=== PATIENT | male | born 1950 | race Caucasian/White ===

== ENCOUNTER → 2017-02-17 | Outpatient (CLI) | payer MEDICARE, OTHER ==
[~2017-02-17] MED LIST: ADALAT CC60 MG PO; CHILDREN'S ZYRT10 MG PO; PRINIVIL20 MG PO; RT SPIRIVA18 MCG IH; TOPROL XL100 MG PO
== END ==
LOC: COL.RAD 10:02
DX: R91.1 Solitary pulmonary nodule (principal)
CPT/HCPCS: Q9967

== ENCOUNTER → 2018-02-02 | Outpatient (CLI) | payer MEDICARE, OTHER | LOC: COL.RAD 07:18 | DX: Z13.6 Encounter for screening for cardiovascular disorders (principal); I71.4 Abdominal aortic aneurysm, without rupture; I72.3 Aneurysm of iliac artery ==

== ENCOUNTER 2018-12-22 14:02 | Inpatient (IN) | payer MEDICARE, OTHER ==
[~2018-12-22] VITALS: Ht 182.9 cm; Wt 80.7 kg
[~2018-12-22 14:02] MED LIST changes: +ASPIRIN E.C. 8181 MG PO; -CHILDREN'S ZYRT10 MG PO; +PRINZIDE 12.5 M1 TA1 PO; +SYNTHROID0.1 MG/TAB PO; +ZYRTEC 10MG10 MG PO
[2018-12-22 15:08] LABS: ALBUMIN 3.8 gm/dL (3.5-5.0); BASO % 0.2 % (0.0-2.0); BILIRUBIN,TOTAL 0.4 mg/dL (0.0-1.0); CALCIUM 9.3 mg/dL (8.4-10.2); CREATININE, serum 0.95 (0.66-1.25); EOS # 0.2 (0.0-0.7); EOS % 1.2 % (0-4.0); GRAN # 10.5 (1.4-6.5); GRAN % 74.8 % (42.2-75.2); HEMATOCRIT 43.8 % (42.0-52.0); HEMOGLOBIN 14.7 g/dl (13.5-18.0); LYMPH # 2.2 (1.2-3.4); LYMPH % 15.6 % (20.0-51.0); MAGNESIUM 2.1 mg/dL (1.6-2.3); MEAN CELL VOLUME 92 fl (80.0-100.0); MEAN CORPUSCULAR HEMOGLOBIN 31 pg (27.0-31.0); MEAN CORPUSCULAR HGB CONC 34 g/dl (33.0-37.0); MEAN PLATELET VOLUME 12.7 fl (7.4-10.4); MONO % 7.1 % (1.7-9.3); PLATELET COUNT 169 K/mm3 (130-400); POTASSIUM 3.6 mmol/L (3.4-5.0); RED BLOOD COUNT 4.74 M/mm3 (4.20-5.60); REDCELL DISTRIBUTION WIDTH-CV 12.9 % (11.5-14.5); TOTAL PROTEIN 7.9 gm/dL (6.4-8.2)
[2018-12-22 16:26] LABS: C-REACTIVE PROTEIN 4.7 mg/dL (0.0-0.9); CREATINE KINASE 58 U/L (55-170)
[2018-12-22 16:36] LABS: TROPONIN-I < 0.012 ng/mL (0.000-0.035)
--- NOTE | 2018-12-22 19:15 | NUR ---
Pt here from ER via stretcher. No distress noted. Family at bedside. Call light within reach. Will review orders and complete assessment.
[2018-12-22 19:26] VITALS: BP 133/76; PULSE 71; TEMP 98.7
--- NOTE | 2018-12-22 19:30 | NUR ---
Pt is alert and oriented. No c/o pain. Pt is c/o sinus drainage and cough x 10 days. He states he occasionally coughs up mucus. Lungs clear to auscultation. He is requesting a PRN cough medication. Pt states he has tingly and numbness in bilateral feet, R arm up to his elbow and L arm up to his mid humerus. Pt also reports that his hands and feet feel swollen. There is no edema present. 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 Some right arm drift noted, but is minimal. Pupils equal and accomodating.
--- NOTE | 2018-12-22 19:38 | NUR ---
Orders received from Ama DILLON for PRN cough medication per pt request.
--- NOTE | 2018-12-22 22:30 | NUR ---
Pt voided 400 cc of clear, yesika urine in urinal. No needs noted.
[2018-12-22 23:45] VITALS: BP 128/68; PULSE 77; TEMP 97.3
--- NOTE | 2018-12-23 03:40 | NUR ---
Pt sleeping, but easily arousable. Neuro check WNL. Pt reports that numbness and tingling is still present in Bilateral feet and hands, but it has resolved in arms.
[2018-12-23 03:58] VITALS: BP 117/77; PULSE 67; TEMP 98.4
--- NOTE | 2018-12-23 06:05 | NUR ---
Pt sleeping this AM. Easily arousable. Denies pain. Pt reports that numbness and tingling is at original levels of bilateral feet, r arm to elbow and l arm to mid humerus. Pt denies needs.
[2018-12-23 07:10] LABS: BASO % 0.1 % (0.0-2.0); EOS # 0.2 (0.0-0.7); EOS % 1.5 % (0-4.0); GRAN % 72.5 % (42.2-75.2); MEAN CELL VOLUME 93 fl (80.0-100.0); MEAN CORPUSCULAR HGB CONC 33 g/dl (33.0-37.0); MEAN PLATELET VOLUME 12.7 fl (7.4-10.4); MONO # 0.7 (0.1-0.6); MONO % 6.6 % (1.7-9.3); PLATELET COUNT 132 K/mm3 (130-400); RED BLOOD COUNT 3.97 M/mm3 (4.20-5.60); REDCELL DISTRIBUTION WIDTH-CV 13.1 % (11.5-14.5)
[2018-12-23 07:27] LABS: CALCIUM 8.4 mg/dL (8.4-10.2); CREATININE, serum 0.88 (0.66-1.25); POTASSIUM 3.7 mmol/L (3.4-5.0)
[2018-12-23 07:37] LABS: HEMATOCRIT 36.9 % (42.0-52.0); MEAN CORPUSCULAR HEMOGLOBIN 31 pg (27.0-31.0)
[2018-12-23 07:38] LABS: HEMOGLOBIN 12.2 g/dl (13.5-18.0)
[2018-12-23 08:26] VITALS: BP 129/76; PULSE 58; TEMP 98.3
--- NOTE | 2018-12-23 10:54 | NUR ---
Assessment completed, alert/oriented, vital signs stable/ HTN and I have given his scheduled meds to help lower B/P, he denies any pain or discomfort, he reports numbness to BUE and BLE extrm. is still present and unchanged, he stated he feels generally weak, we will consult Neurology 12/24 as we do not have coverage over the weekend, he denies any resp.difficulty and lungs are CTA, heart RRR/ditsal pulses are palpable, PT/OT ordered, his is present and I have discussed plan of care with them, I have updated of patients condition and discussed plan of care
[2018-12-23 11:21] VITALS: BP 137/70; PULSE 54; TEMP 98.2
--- NOTE | 2018-12-23 13:35 | NUR ---
BEDSIDE VITAL CAPACITY 2.8L 3.59L 3.75L. GOOD EFFORT SOME COUGHING AT END EXPIRATORY.
[2018-12-23 15:55] VITALS: BP 136/71; PULSE 58; TEMP 98.6
--- NOTE | 2018-12-23 16:35 | NUR ---
Plan is to return home with his Saskia . EMR contact is [facility] in [place]. PT reports DPOA is , Patient reports the use of [facility] for RX fdc, short term scripts are [facility]. Patient reports the use of CPAP as the only DME. PCP is Dr. Maldonado with upcoming appointment in January. Patient decline homehealth services or the need for SNF. Patient reports being agreeable to outpat services. will transport if patient can not. Patient may need RT oxi-, patient reports inconsistent use of CPAP. No additional needs identified. Will continue to follow.
[2018-12-23 19:56] VITALS: BP 130/79; PULSE 65; TEMP 97.9
[2018-12-23 23:27] VITALS: BP 109/60; PULSE 57; TEMP 98.1
--- NOTE | 2018-12-24 00:26 | NUR ---
VC 3.7L, 3.8L, 3.9L DONE WITH NOSE CLIPS AND GREAT EFFORT.
[2018-12-24 04:01] VITALS: BP 101/66; PULSE 65; TEMP 98.1
--- NOTE | 2018-12-24 04:24 | NUR ---
Patient resting in bed. Denies needs at this time. Telemetry called stating patient bradycardic low 50s. No sx. Will monitor. Currently pulse is 65 on library monitor.
--- NOTE | 2018-12-24 05:21 | NUR ---
Telemetry called stating heart rate 44. Patient asymptomatic. VS taken. Will monitor.
[2018-12-24 05:22] VITALS: BP 112/70; PULSE 65; TEMP 98.1
--- NOTE | 2018-12-24 06:12 | NUR ---
Pt reports no change this AM. Continues to have numbness to bilat hands and feet. Holds on to cup to drink with both hands, states he is afraid he will drop the cup. Not sure he has a good hold of it. Will continue to monitor.
--- NOTE | 2018-12-24 07:13 | NUR ---
Patient taken for lumbar puncture.
--- NOTE | 2018-12-24 07:45 | NUR ---
Patient to radiology for lumbar puncture at this time.
--- NOTE | 2018-12-24 07:45 | NUR ---
Pt had one episode of bradycardia with HR of 43. Ama notified of HR. Pt with no s/s. Was sleeping, awakens easily. VS monitored with HR 60's. Order to hold Metoprolol this AM. Report given to NAKUL Best.
[2018-12-24 08:05] LABS: HEMATOCRIT 37.8 % (42.0-52.0); HEMOGLOBIN 12.7 g/dl (13.5-18.0); MEAN CELL VOLUME 92 fl (80.0-100.0); MEAN CORPUSCULAR HEMOGLOBIN 31 pg (27.0-31.0); MEAN CORPUSCULAR HGB CONC 34 g/dl (33.0-37.0); MEAN PLATELET VOLUME 12.4 fl (7.4-10.4); PLATELET COUNT 176 K/mm3 (130-400); RED BLOOD COUNT 4.12 M/mm3 (4.20-5.60); REDCELL DISTRIBUTION WIDTH-CV 12.9 % (11.5-14.5)
[2018-12-24 08:19] LABS: CALCIUM 8.7 mg/dL (8.4-10.2); CREATININE, serum 0.78 (0.66-1.25); POTASSIUM 3.5 mmol/L (3.4-5.0)
[2018-12-24 08:32] VITALS: BP 123/77; PULSE 74; TEMP 97.3
[2018-12-24 08:49] LABS: TSH w REFLEX 1.67 uIU/mL (0.465-4.680)
[2018-12-24 08:58] LABS: GLUCOSE,CSF 52 mg/dL (40-70); TOTAL PROTEIN,CSF 59 mg/dL (15-45)
[2018-12-24 09:09] LABS: LYMPHOCYTE 12 % (20.0-51.0); NEUTROPHILS 85 % (42.0-75.2); PLATELET ESTIMATE NORMAL (NORMAL)
--- NOTE | 2018-12-24 09:10 | NUR ---
Patient returned from lumbar puncture procedure at 0850, was instructed to lay flat until 0900. Patient was administered medications. Did ask if he could eat. Asked PA and physician and was instructed to contact Dr. Lindsey. Call placed awaiting return call. Call light and personal items are within reach.
--- NOTE | 2018-12-24 09:24 | NUR ---
BESIDE VITAL CAPACITY DONE 4.53L 3.42L 4.18L GOOD EFFORT COUGHING END EXPIRATORY
[2018-12-24 11:01] LABS: CSF APPEARANCE CLEAR; CSF COLOR COLORLESS; CSF MONONUCLEAR 100 % (70-100); CSF POLYMORPHONUCLEAR 0 % (0-6); CSF RBC 1 /mm3 (0-0)
[2018-12-24 11:44] VITALS: BP 122/82; PULSE 74; TEMP 98.4
--- NOTE | 2018-12-24 11:49 | NUR ---
First visit from the grain weigher. No needs right now.
--- NOTE | 2018-12-24 13:03 | NUR ---
Received return call from Dr. Lindsey, received order that patient can resume regular diet.
--- NOTE | 2018-12-24 13:50 | NUR ---
YADI met with the patient to review discharge plan and to discuss physical therapies recommendation of post-acute rehab. The patient reports that he would be agreeable to post-acute rehab and would be interested in [facility]. The patient reports that he would like more answers on the tests that were done and medical plan of care, before he can really committ to rehab. YADI did consult IPR Director, Melia. YADI also provided the patient with Medicare.gov's list of SNF in the [facility]. YADI to continue to follow.
--- NOTE | 2018-12-24 14:19 | NUR ---
VITAL CAPACITY 4.83L 3.89L 4.96L
[2018-12-24 16:05] VITALS: BP 117/75; PULSE 82; TEMP 98.9
--- NOTE | 2018-12-24 19:05 | NUR ---
Patient is resting in bed. Dr. Lindsey brought orders for patient to receive IGG, was informed earlier that we do not have the medication here. He requested to speak with Dr. Finn, phone dialed for him and notified oncoming shift of new orders from Dr. Lindsey.
--- NOTE | 2018-12-24 19:42 | NUR ---
PT SITTING UPRIGHT IN BED. GOOD SPIRITS. ASSESSMENT COMPLETE. NO C/O DISCOMFORT. STILL CONTINUES TO HAVE NUMBNESS IN ALL EXTREMITIES.
[2018-12-24 19:44] VITALS: BP 130/78; PULSE 95; TEMP 97.3
--- NOTE | 2018-12-24 19:51 | NUR ---
PT HAS BANDAID INTACT TO MID-LOWER BACK FROM LUMBAR PUNCTURE TODAY. NO REDNESS, DRAINAGE NOTED.
--- NOTE | 2018-12-24 20:27 | NUR ---
VC: 3.9 4.3 4.5
[2018-12-24 21:12] LABS: COLLECTION METHOD CLEAN CATCH
[2018-12-24 21:27] LABS: AMORPHOUS CRYSTAL Present /uL; MUCOUS Present /lpf; PH 7 (5-8); SQUAMOUS EPITHELIAL None Seen /hpf; URINE APPEARANCE Clear; URINE BACTERIA Rare /hpf; URINE BILIRUBIN Negative (NEGATIVE); URINE BLOOD 1+ (NEGATIVE); URINE COLOR Yellow; URINE GLUCOSE Negative (NEGATIVE); URINE KETONE Negative (NEGATIVE); URINE LEUKOCYTE ESTERASE Negative (NEGATIVE); URINE NITRATE Negative (NEGATIVE); URINE PROTEIN(semi-quant) Negative (NEGATIVE)
[2018-12-25 00:39] VITALS: BP 131/80; PULSE 99; TEMP 98.7
[2018-12-25 04:34] VITALS: BP 141/85; PULSE 100; TEMP 98
--- NOTE | 2018-12-25 06:32 | NUR ---
Pt repositioned throughout the night. Incont of urine. Scrotum and groin area red. Applied barrier cream. Coccyx area with small open area.
--- NOTE | 2018-12-25 06:45 | NUR ---
awake resting in bed, bedside shift report received from NAKUL Rosa
--- NOTE | 2018-12-25 06:56 | NUR ---
Report given to NAKUL Taylor
--- NOTE | 2018-12-25 07:40 | NUR ---
VITAL CAPACITY X THREE. 1.9; 2.7; 3.65
[2018-12-25 07:46] LABS: BASO % 0.2 % (0.0-2.0); EOS # 0.1 (0.0-0.7); GRAN % 80.4 % (42.2-75.2); HEMATOCRIT 38.9 % (42.0-52.0); HEMOGLOBIN 12.9 g/dl (13.5-18.0); LYMPH # 1.4 (1.2-3.4); LYMPH % 10.4 % (20.0-51.0); MEAN CELL VOLUME 91 fl (80.0-100.0); MEAN CORPUSCULAR HEMOGLOBIN 30 pg (27.0-31.0); MEAN CORPUSCULAR HGB CONC 33 g/dl (33.0-37.0); MEAN PLATELET VOLUME 13.1 fl (7.4-10.4); MONO % 7.1 % (1.7-9.3); PLATELET COUNT 188 K/mm3 (130-400); RED BLOOD COUNT 4.29 M/mm3 (4.20-5.60); REDCELL DISTRIBUTION WIDTH-CV 12.9 % (11.5-14.5)
[2018-12-25 07:59] LABS: CALCIUM 8.7 mg/dL (8.4-10.2); CREATININE, serum 0.74 (0.66-1.25); POTASSIUM 3.4 mmol/L (3.4-5.0)
--- NOTE | 2018-12-25 08:00 | NUR ---
resting in bed, full assessment completed, see interventions for further info, denies pain except in elbows when strength checked otherwise nothing, is able to follow commands but states he just doens't feel anything with his hands, provided water so he can provide himself am hygiene
[2018-12-25 08:23] VITALS: BP 127/76; PULSE 83; TEMP 97.7
--- NOTE | 2018-12-25 08:30 | NUR ---
Dr Finn and care team in to see patient, will work on transfer to another facility
--- NOTE | 2018-12-25 09:25 | NUR ---
remains resting in bed, given scheduled am meds and takes without difficulty, is ready to be transferred, explained it is a process and we are awaiting the hospital to call us
--- NOTE | 2018-12-25 10:20 | NUR ---
spoke with Flaco at [facility] and will plan transfer later today when bed available
[2018-12-25] MEDS ORDERED: TOPROL XL 50MG50 MG PO (10:23)
--- NOTE | 2018-12-25 10:23 | NUR ---
The patient is transfer to [facility] today, 12/25. YADI updated Shanel with IPR. No additional needs at this time.
--- NOTE | 2018-12-25 10:26 | NUR ---
remains resting in bed without c/os
--- NOTE | 2018-12-25 11:08 | NUR ---
physical therapy in visiting with patient
[2018-12-25 11:37] VITALS: BP 127/76; PULSE 83; TEMP 97.7
--- NOTE | 2018-12-25 11:59 | NUR ---
assisted out of recliner and ambulated to stretcher for transfer
--- NOTE | 2018-12-25 12:16 | NUR ---
report called to NAKUL Mary at [facility]
== END 2018-12-25 12:00 | disposition short-term general hospital (02) | DRG 96 ==
LOC: COL.ER 14:02 → MEDICAL 16:19
PROVIDERS: Emergency Medicine; Physician Assistant; Psychiatry & Neurology Neurology; ADMIT Hospitalist
DX: G61.0 Guillain-Barre syndrome (principal); I10 Essential (primary) hypertension; E03.9 Hypothyroidism, unspecified; G47.33 Obstructive sleep apnea (adult) (pediatric); J32.9 Chronic sinusitis, unspecified; D72.829 Elevated white blood cell count, unspecified
CPT/HCPCS: 99232-AI; 99239; G0378; J1650; J7030

== ENCOUNTER 2018-12-30 11:11 | Inpatient (IN) | payer MEDICARE, OTHER ==
[~2018-12-30] VITALS: Ht 182.9 cm; Wt 80.2 kg
[~2018-12-30 11:11] MED LIST changes: +TOPROL XL 50MG50 MG PO
--- NOTE | 2018-12-30 13:54 | NUR ---
Report from Andrés nurse at . Pt arrived to [id number]
[2018-12-30 14:04] VITALS: BP 132/87; PULSE 96; TEMP 98.7
[2018-12-30] MEDS ORDERED: MUCINEX 60600 MG/TA1 PO (14:06)
[2018-12-30] MEDS ORDERED: COMBIRESP IH (14:07)
[2018-12-30] MEDS ORDERED: LEVAQUIN 750MG750 M1 PO (14:09)
[2018-12-30] MEDS ORDERED: THERA-M W/MINER1 TAB PO (14:11)
[2018-12-30] MEDS ORDERED: CYANOCOBAL1000 MCG/M IM (14:42)
[2018-12-30] MEDS ORDERED: VITAMIN B12 781 TAB PO (14:43)
[2018-12-30] MEDS ORDERED: LOVENOX 4040 MG/0.4 SQ (14:46)
--- NOTE | 2018-12-30 15:16 | NUR ---
reviewed med rec with Dr. Juarez.
[2018-12-30] MEDS ORDERED: STIOLTO RESPIMAT4 GM IH (17:44)
--- NOTE | 2018-12-30 19:26 | NUR ---
Report to NAKUL Raymond, informed and provided edits to pt's"5-page" for updating. Pt has bed alarm on, yellow gripper socks in place, call lt, RT notified that pt's own CPAP in room. Pt declined supper but ordered meals for tomorrow.
--- NOTE | 2018-12-30 20:20 | NUR ---
Pt resting with HOB elevated. Denies pain. No distress noted. Pt reports numbness/tingling in BLE to knees and BUE to midforearm. Pt able to lift BLE and hold. Hand union laborer equal, but weak. Respirations even and unlabored. Lungs clear to auscultation. Pt is coughing. He reports it is productive with thick, green sputum. Abdomen soft, nontender. BS+. Voiding in urinal- yesika, clear urine. Pt denies needs.
--- NOTE | 2018-12-31 05:30 | NUR ---
Pt up to chair this AM with walker, gait belt and 2 assist. Well tolerated by patient. Pt slept periodically throughout the shift. No needs noted this AM. VSS.
[2018-12-31 05:31] VITALS: BP 151/84; PULSE 74; TEMP 97.8
--- NOTE | 2018-12-31 08:00 | NUR ---
Patient sitting up in recliner eating breakfast. Alert and oriented x3. Shift assessment complete. Spouse at bedside. States he continues to have numbness to BLE and tingling to bilateral hands. Denies further needs at this time.
--- NOTE | 2018-12-31 13:04 | NUR ---
Contacted [facility] for medication list
--- NOTE | 2018-12-31 14:17 | NUR ---
Patient sitting up in recliner eating breakfast. Alert and oriented x 3. Shift assessment complete. Spouse at bedside. Patient states he continues having numbness to BLE and tingleing to Bilateral hands. Denies further needs at this time.
--- NOTE | 2018-12-31 15:03 | NUR ---
SW met with patient to discuss discharge planning. Patient lives with his in [place]. He lives in a second floor apartment but reports it is just 5/6 stairs. Patient does not have any DME at home and was independent with all ADL's prior. Patients PCP is Dr Katty Maldonado and he obtains his medications from [facility]. Patient plans to return home at discharge if possible. YADI will continue to follow.
[2018-12-31] MEDS ORDERED: TOPROL XL100 MG PO (15:19)
[2018-12-31 17:53] VITALS: BP 106/66; PULSE 100; TEMP 97.9
--- NOTE | 2018-12-31 18:53 | NUR ---
Patient has done well today. Denies pain at this time. Has been up to restroom throughout the day with stand by assist with walker, steady gait. Denies further needs at this time. Reported off to altitude chamber technician.
--- NOTE | 2018-12-31 19:10 | NUR ---
Pt sitting up in the chair. No distress noted. Pt denies pain. Pt reports numbness and tingling have improved with PT/OT today. Pt reports numbness in bilateral hands and BLE up to knees. Pt strength is also improving. He is able to lift and hold BLE up and his caster operator are stronger than the previous night. Pt still c/o productive cough. Lungs are clear on auscultation, however. No needs noted. Will continue to monitor.
--- NOTE | 2018-12-31 21:05 | NUR ---
Pt ambulated from chair to bathroom with 1 minimal assist, gait belt and walker. Pt was able to get up from chair in 2 attempts. Gait is steady. Pt voiding clear, yesika urine. Pt returned to chair. No needs noted.
--- NOTE | 2019-01-01 04:30 | NUR ---
Pt sitting in chair c/o pain in bilateral hands/forearms that he describes as constant. PRN Tylenol given. Will continue to monitor.
[2019-01-01 05:49] VITALS: BP 122/85; PULSE 83; TEMP 98.1
--- NOTE | 2019-01-01 17:26 | NUR ---
Patient attended all therapies today. Ate 100% of his meals this shift. Patient reports still having pain to bilateral arms and numbness/tingling to bilateral hands. Given prn pain meds with some effect. Will continue to monitor. No incontinence this shift.
[2019-01-01 19:40] VITALS: BP 98/69; PULSE 109; TEMP 98.4
--- NOTE | 2019-01-01 20:00 | NUR ---
HS meds all reviewed and given. Denies pain at this time. States just has numbness tingling to hands. Sits up in recliner watching TV and denies needs Declines snack.
--- NOTE | 2019-01-02 00:52 | NUR ---
Patient awake and reports can't get comfortable in the bed. "Feel like in a hole". Offered to put more air in airmattress and declined. Denies needs at this time. Urinal emptied.
--- NOTE | 2019-01-02 02:56 | NUR ---
Patient awake and sits up in recliner. Reports inability to get comfortable. Dozes off and on with frequent awakenings. Tylenol given and kpad to back.
[2019-01-02 04:05] VITALS: BP 129/90; PULSE 75; TEMP 97.9
--- NOTE | 2019-01-02 04:17 | NUR ---
Patient states yes now to getting some sleep. States tylenol really helped for pain. Kpad heat adjusted up "not getting warm".
--- NOTE | 2019-01-02 06:31 | NUR ---
PATIENT STATES GOT 1.5 HOURS OF SLEEP JUST NOW. "MORE SLEEP THAN I'VE HAD 3 DAYS.
--- NOTE | 2019-01-02 12:00 | NUR ---
Initial visit; Patient thanked Asp Web Developer for looking in on him and letting him know of the availability of spiritual care at [facility].
--- NOTE | 2019-01-02 14:40 | NUR ---
Patient reported that he was still not able to sleep well last night with the air mattress. This nurse applied an egg crate cushion to his bed for patient to try out tonight. Will continue to monitor.
--- NOTE | 2019-01-02 16:03 | NUR ---
SW met with patient to present team conference notes. SW explained the contents and discussed the goals and barriers with him. Patient is open to a family meeting on monday but needs to ask his . Patient had questions about scheduling an appointment with neurology at discharge as well as about test results. YADI talked with marlyn, IPR director, who reports she needs to request the results and that we can schedule the appointment at [facility]. There are no other questions or concerns at this time.
[2019-01-02 16:18] VITALS: BP 95/66; PULSE 81; TEMP 98.3
--- NOTE | 2019-01-02 20:22 | NUR ---
Patient attended all therapies today. Denied pain this shift. Tolerated diet well. Reports still having numbness to his finger tips, which makes it difficult to work the TV remote. He is still having pain with bilateral arms at times, but did not request any pain meds this shift. Uses a K-Pad - and is effective.
--- NOTE | 2019-01-02 23:17 | NUR ---
Patient awake and sitting up in recliner. States "just woke up from 3 hour sleep". Denies pain or needs.
--- NOTE | 2019-01-03 00:33 | NUR ---
Patient rests in recliner with eyes closed. Respirations with ease.
--- NOTE | 2019-01-03 02:43 | NUR ---
Continues resting in recliner with eyes closed. Respirations with ease.
[2019-01-03 05:50] VITALS: BP 120/71; PULSE 80; TEMP 98.2
--- NOTE | 2019-01-03 06:27 | NUR ---
Patient reports slept well in recliner last night. SCD's applied.
--- NOTE | 2019-01-03 08:10 | NUR ---
Report from NAKUL Baez. Pt called to toilet, turned on chair alarm, KPAD to back, pt donned and tied his sneakers, amb to BR with gait belt, 4WW, purposeful movement. Reports numbness is in hands and bottoms of feet now. A&O, pleasantly cooperative, pt to sink in wc for oral cares, hand and hair hygiene. Changed own brief of smear, changed pants and shirt.
[2019-01-03 16:15] VITALS: BP 106/64; PULSE 60; TEMP 98.2
--- NOTE | 2019-01-03 18:03 | NUR ---
Irregular HR upon assessment: skips about every four beats. Pt denies dizziness or light-headedness.
--- NOTE | 2019-01-04 02:10 | NUR ---
PT SITTING IN RECLINER. VISITING WITH . VERY SUPPORTIVE. PT TALKATIVE AND PLEASANT. PT PLANS TO SLEEP IN RECLINER. ENC FEET ELEVATED. AGREED. REFUSES CPAP. ENC USE AND RATIONALE. DECLINED. NEUROPATHY TO HANDS AND FEET. BUT PT REPORT MUCH IMPROVE. USES KPAD PRN FOR COMFORT CALL LIGHT N REACH.
[2019-01-04 05:23] VITALS: BP 94/60; PULSE 84; TEMP 97.8
--- NOTE | 2019-01-04 08:07 | NUR ---
Report from NAKUL Chung. Pt called to toilet, amb with walker, gait belt, SBA, steady. Denies pain, KPAD to back of chair, slept in chair, SCDs were on, shoes on, glasses on, call lt in reach. Pleasant, A&O, pleasantly cooperative.
--- NOTE | 2019-01-04 15:14 | NUR ---
family meeting Monday at 1pm.
[2019-01-04 15:21] VITALS: BP 103/68; PULSE 90; TEMP 98.3
--- NOTE | 2019-01-04 18:27 | NUR ---
Pt adv to mod I in rm with 4WW, edu about safety, do not hesitated to call, verbalizes understanding.
--- NOTE | 2019-01-05 00:07 | NUR ---
PT RESTING IN RECLINER WITH FEET ELEVATED. PT DENIES PAIN. HAS TINGLING AND SOME NUMBNESS TO FINGER TIPS AND BOTTON OF FEET BILAT, PT MOD IN ROOM. NO DIFFICULTIES. ENC PT TO CALL IF NEDIGN ASSIST OR UNSTEADY IN THE NIGHT.
--- NOTE | 2019-01-05 00:23 | NUR ---
PT LIKES SLEEPING IN RECLINER. PT ABLE TO TRANSFER SELF SAFELY TO BATHROOM AND BACK. DENEIS PAIN. CALL LIGHT IN [facility].
[2019-01-05 04:31] VITALS: BP 111/67; PULSE 91; TEMP 98.3
--- NOTE | 2019-01-05 08:57 | NUR ---
Patient resting in chair at this time, call light in reach and independent in his room. Tolerating diet well.
[2019-01-05 17:24] VITALS: BP 100/59; PULSE 94; TEMP 97.7
--- NOTE | 2019-01-05 20:22 | NUR ---
PT SITTING IN RECLINER. HERE. VERY SUPPORTIVE. DENIES PAIN. +2 EDEMA TO BLE. ENC ELEVATION. PT WALKED OUT IN LEAL TO ELEVATOR WITH ROLLING WALKER. STEADY GAIT. ADMITS TO TINGLING NUMBNESS TO FINGERS, FEET ARE IMPROVING. PT MOD I IN ROOM WITH WALKER. DENIES NEEDS AT THIS TIME.
--- NOTE | 2019-01-06 00:49 | NUR ---
PT SLEPT FOR SEVERAL HOURS IN THE BED. UP TO BR. NO NEEDS AT THIS TIME.
--- NOTE | 2019-01-06 04:36 | NUR ---
PT RESTING IN BED. NO DISTRESS.
[2019-01-06 05:03] VITALS: BP 102/66; PULSE 80; TEMP 97.5
--- NOTE | 2019-01-06 08:07 | NUR ---
Patient slept in bed last night and reported that he slept well. He visited with his last night and she trimmed his finger nails. Tolerating diet well eating 100% of his meals. Denies pain. Currently resting in recliner, call light in reach and is independent in his room.
--- NOTE | 2019-01-06 15:55 | NUR ---
Patient resting in recliner at this time, independent in his room, call light in reach. This nurse visited with patient and discussed strategies to work on the game "[employer]spin[employer] Hour". Patient was very good at problem solving. Patient has excellent memory talking about past events about family. Patient drank his nutrition drink. Denies pain or questions at this time.
[2019-01-06 16:11] VITALS: BP 99/63; PULSE 80; TEMP 98.4
--- NOTE | 2019-01-06 21:39 | NUR ---
PT SITTING IN RECLINER. ENC FEET ELEVATED. PT AGREED. STILL HAVING CONSTANT TINGLING IN FINGERTIPS AND INTERMITTENT ON BOTTOM OF FEET. OTHERWISE NO PAIN. MOD I IN ROOM WITH WALKER. ENC AMBIN LEAL WITH SBA ASSIST.
[2019-01-07 05:42] VITALS: BP 125/71; PULSE 91; TEMP 97.7
--- NOTE | 2019-01-07 14:37 | NUR ---
YADI attended a family meeting with the patient and patient's , Saskia. Also present was IPR Director, PT, and OT. Melia, IPR Director, started by explaining the purpose of the meeting. PT & OT then discussed how the patient is doing and then reviewed the plan of a discharge for this Monday, 01/09, with outpatient PT/OT. The patient and his were in agreeance to the plan. The team answered all questions. YADI then followed up with the patient and his to discuss the different therapy centers in [place]. The patient chose [facility]. YADI contacted [facility] on [facility] and scheduled an appointment for OT on , 01/10, at 0945 and an appointment for PT on Monday, 01/11, at 1045. YADI informed the patient's nurse of appointments. YADI will need to fax the patient's discharge orders to the [facility] on [facility] to [phone]. YADI to continue to follow.
[2019-01-07 15:35] VITALS: BP 103/69; PULSE 95; TEMP 97.9
--- NOTE | 2019-01-07 19:42 | NUR ---
Report from NAKUL Chung. Pt david mod I in room with walker, later advanced to independent in room without device, as well as in hallways but enc to call nurse prior to leaving room. Pt A&O, pleasantly cooperative, denies pain, cont to have numbness in fingertips and bottoms of feet. Takes pills whole with water. Family visited this afternoon. Good appepetite, verbalized that he feels confident in going home on 01/09, gave pt upcoming appt info. Denies any needs. Report to SUE Joshua
[2019-01-08 05:28] VITALS: BP 130/74; PULSE 80; TEMP 97.6
--- NOTE | 2019-01-08 06:11 | NUR ---
Patient remains independent in room and halls. Patient ambulated in halls before bed and appears to have rested well. No complaints of pain and no needs expressed, call light within reach.
--- NOTE | 2019-01-08 11:42 | NUR ---
Report from SUE Joshua. Pt david indep in , reports no difficulties without toilet riser, denies using grab bar. Dressed for therapy, reviewed plan for last day therapy evals and no therapy tomorrow, likely discharge tomorrow afternoon. Pt denies pain.
[2019-01-08 18:31] VITALS: BP 123/75; PULSE 90; TEMP 98.3
--- NOTE | 2019-01-08 19:16 | NUR ---
Pt david indep in and jaquez. No complaints. Said good-bye and good luck to pt this colt. Report to SUE Joshua
[2019-01-09 05:29] VITALS: BP 117/72; PULSE 70; TEMP 97.5
--- NOTE | 2019-01-09 05:37 | NUR ---
Patient remains independent. No complaints of pain or needs during the night. Call light within reach.
[2019-01-09] MEDS ORDERED: TYLENOL 325MG325 MG PO (08:21)
[2019-01-09] MEDS ORDERED: ZESTRIL 5MG5 MG PO (08:22)
[2019-01-09] MEDS ORDERED: PROAIR HFA0.09 MG/AC IH (08:28)
--- NOTE | 2019-01-09 10:05 | NUR ---
The patient is to discharge back home with his today, 01/09, with outpatient PT/OT at the [facility] on [address]. YADI faxed the patient's discharge orders to [facility] on [address]. YADI presented and explained the IM form to the patient. The patient verbalized understanding, signed, and he was provided a copy. No additional needs at this time.
--- NOTE | 2019-01-09 10:05 | NUR ---
Patient resting in recliner at this time, call light in reach and is independent in his room. Patient denies pain this morning. Tolerated diet well for breakfast. Patient awaiting discharge this morning.
--- NOTE | 2019-01-09 11:37 | NUR ---
Patient Health Summary, Discharge Summary and Home meds printed and reviewed with patient. Stressed importance of follow up appointments. Called prescriptions for Vitamin B12 and Mucinex into pharmacy of choice. Belongings gathered by ADIEL/Arlen including glasses, watch, ring, phone/haroon, global expansion sales director, egg crate mattress and air mattress. Patient transported via wheelchair by ADIEL/Arlen and seatbelted for riede home with family. Patient denied questions at this time. Patient requested for his medication Stiolto Respimat to be destroyed that was located in his cubby. This medications was sent to pharmacy to be destroyed.
--- NOTE | 2019-01-09 16:17 | NUR ---
Per Dr. Maldonado Request faxed discharge paper to her office.
--- NOTE | 2019-01-09 16:18 | NUR ---
Per Dr. Youssef request faxed [facility] papers to [phone].
== END 2019-01-09 11:55 | disposition home or self-care (01) | DRG 948 ==
PROVIDERS: ADMIT Internal Medicine
DX: R53.81 Other malaise (principal); G61.0 Guillain-Barre syndrome; I10 Essential (primary) hypertension; R91.8 Other nonspecific abnormal finding of lung field; E03.9 Hypothyroidism, unspecified; R63.4 Abnormal weight loss; Z68.23 Body mass index [BMI] 23.0-23.9, adult; F17.210 Nicotine dependence, cigarettes, uncomplicated; Z79.82 Long term (current) use of aspirin
CPT/HCPCS: 99222-AI; 99232-AI; 99239; J1650; J3420

== ENCOUNTER 2019-02-14 11:00 | Outpatient (RCR) | payer MEDICARE, OTHER ==
[~2019-02-14 11:00] MED LIST changes: +COMBIRESP IH; +CYANOCOBAL1000 MCG/M IM; +LEVAQUIN 750MG750 M1 PO; +LOVENOX 4040 MG/0.4 SQ; +MUCINEX 60600 MG/TA1 PO; +PROAIR HFA0.09 MG/AC IH; +STIOLTO RESPIMAT4 GM IH; +THERA-M W/MINER1 TAB PO; +TYLENOL 325MG325 MG PO; +VITAMIN B12 781 TAB PO; +ZESTRIL 5MG5 MG PO
== END 2019-02-15 13:11 | disposition home or self-care (01) ==
LOC: WSC 11:00
DX: G61.0 Guillain-Barre syndrome (principal)

== ENCOUNTER → 2020-07-01 | Outpatient (CLI) | payer MEDICARE, OTHER | LOC: COL.RAD 06:53 | DX: Z13.6 Encounter for screening for cardiovascular disorders (principal); I71.4 Abdominal aortic aneurysm, without rupture; Z82.49 Family history of ischemic heart disease and other diseases of the circulatory system ==

== ENCOUNTER → 2021-06-09 | Outpatient (CLI) | payer MEDICARE, OTHER | LOC: COL.RAD 07:01 | DX: J98.09 Other diseases of bronchus, not elsewhere classified (principal); I71.4 Abdominal aortic aneurysm, without rupture; R91.1 Solitary pulmonary nodule | CPT/HCPCS: Q9967 ==

== ENCOUNTER 2021-07-12 17:00 | Inpatient (IN) | payer MEDICARE, OTHER ==
[~2021-07-12] VITALS: Ht 182.9 cm; Wt 82.7 kg
[2021-07-12 17:36] LABS: HEMATOCRIT 39.8 % (42.0-52.0); HEMOGLOBIN 13.4 g/dl (13.5-18.0); MEAN CELL VOLUME 87 fl (80.0-100.0); MEAN CORPUSCULAR HEMOGLOBIN 29 pg (27-31); MEAN CORPUSCULAR HGB CONC 34 g/dl (33.0-37.0); PLATELET COUNT 307 K/mm3 (130-400); REDCELL DISTRIBUTION WIDTH-CV 14.3 % (11.5-14.5)
[2021-07-12 18:09] LABS: ALBUMIN 3.1 gm/dL (3.4-4.8); BILIRUBIN,TOTAL 1.4 mg/dL (0.2-1.2); CALCIUM 8.5 mg/dL (8.4-10.2); CREATININE, serum 1.08 mg/dL (0.72-1.25); POTASSIUM 3.8 mmol/L (3.5-4.5)
[2021-07-12 18:14] LABS: TROPONIN-I 0.017 ng/mL (0.00-0.033)
[2021-07-12 18:56] LABS: BAND 11 % (0-10); LYMPHOCYTE 12 % (20.0-51.0); NEUTROPHILS 59 % (42.0-75.2); PLATELET ESTIMATE NORMAL (NORMAL)
[2021-07-13 07:00] LABS: HEMATOCRIT 40.1 % (42.0-52.0); HEMOGLOBIN 13.3 g/dl (13.5-18.0); MEAN CELL VOLUME 88 fl (80.0-100.0); MEAN CORPUSCULAR HEMOGLOBIN 29 pg (27-31); MEAN CORPUSCULAR HGB CONC 33 g/dl (33.0-37.0); MEAN PLATELET VOLUME 10.9 fl (7.4-10.4); PLATELET COUNT 301 K/mm3 (130-400); RED BLOOD COUNT 4.54 M/mm3 (4.20-5.60); REDCELL DISTRIBUTION WIDTH-CV 14.4 % (11.5-14.5)
[2021-07-13 07:14] LABS: CREATININE, serum 1.06 mg/dL (0.72-1.25); POTASSIUM 3.6 mmol/L (3.5-4.5)
[2021-07-13 07:37] LABS: BAND 7 % (0-10); LYMPHOCYTE 10 % (20.0-51.0); METAMYELOCYTE 1 % (0-0); NEUTROPHILS 77 % (42.0-75.2); PLATELET ESTIMATE NORMAL (NORMAL)
[2021-07-13 08:21] VITALS: BP 148/92; PULSE 74; TEMP 97.9
[2021-07-13 11:06] VITALS: BP 139/83; PULSE 77; TEMP 98.2
--- NOTE | 2021-07-13 11:15 | NUR ---
The patient is COVID positive. SW contacted the patient to discuss discharge plan. The patient lives in [place] with his , Saskia (ph#[phone]). He reports independence with ADLs and does not have any DME. The patient's PCP is Dr. Katty Maldonado and he receives his medications on [place]. He reports no difficulties obtaining his meds. The patient does not have a DPOA-HC in EMR, but he states that he does have one completed and that he designated his . The patient plans on returning home with his upon discharge. He is currently on 4 liters of oxygen. SW to continue to monitor. *Discharge plan: home with *
[2021-07-13 17:01] VITALS: BP 129/71; PULSE 86; TEMP 98.2
--- NOTE | 2021-07-13 17:11 | NUR ---
Patient remains on 4L O2 via NC, tolerating it well. Patient is very pleasant and has no complaints/concerns. Call light is w/in reach. Patient is A&Ox4, and independent in the room. Encouraged to call if any needs arise.
[2021-07-13 19:38] VITALS: BP 124/73; PULSE 80; TEMP 98
--- NOTE | 2021-07-13 20:30 | NUR ---
Initial shift assessment done- denies pain, 02 4L/nc.sats 96%, denies SOb at this time, Up in chair,up to bathroom, steady on feet. denies diarrhea.
[2021-07-14] VITALS (9 sets, daily range): BP systolic 93–147; BP diastolic 54–89; PULSE 48–662; TEMP 97.5–98.2
--- NOTE | 2021-07-14 05:44 | NUR ---
States did sleep well last night, VSS, states coughing alot this morning,having very small amount yellow/brown sputum
[2021-07-14 06:35] LABS: HEMATOCRIT 39.7 % (42.0-52.0); HEMOGLOBIN 12.7 g/dl (13.5-18.0); MEAN CELL VOLUME 90 fl (80.0-100.0); MEAN CORPUSCULAR HEMOGLOBIN 29 pg (27-31); MEAN CORPUSCULAR HGB CONC 32 g/dl (33.0-37.0); MEAN PLATELET VOLUME 12.1 fl (7.4-10.4); PLATELET COUNT 383 K/mm3 (130-400); REDCELL DISTRIBUTION WIDTH-CV 14.6 % (11.5-14.5)
[2021-07-14 07:06] LABS: ALBUMIN 2.4 gm/dL (3.4-4.8); CALCIUM 8.7 mg/dL (8.4-10.2); CREATININE, serum 1.13 mg/dL (0.72-1.25); MAGNESIUM 2.4 mg/dL (1.6-2.6); POTASSIUM 3.5 mmol/L (3.5-4.5)
[2021-07-14 07:25] LABS: BAND 21 % (0-10); LYMPHOCYTE 4 % (20.0-51.0); METAMYELOCYTE 4 % (0-0); NEUTROPHILS 59 % (42.0-75.2); PLATELET ESTIMATE NORMAL (NORMAL)
--- NOTE | 2021-07-14 09:35 | NUR ---
Patient sitting up in the recliner upon entering the room. Does not have any complaints and appears to be doing well this morning. Patient has a sputum cup beside him and has been coughing up some phlegm. Patient states his cough has gotten better since being able to cough up some phlegm.
--- NOTE | 2021-07-14 18:28 | NUR ---
Patient has done well today, no complaints. Remains on 4L of O2 via NC, tolerating it well.
--- NOTE | 2021-07-15 00:47 | NUR ---
PATIENT DOING WELL TONIGHT. ALERT AND ORIENTED. DENIES PAIN. SCHEDULED MEDICATIONS GIVEN. INT TO R HAND PATENT AND FLUSHES EASILY. SEE ASSESSMENT.
[2021-07-15 03:55] VITALS: BP 128/78; PULSE 76; TEMP 98.1
[2021-07-15 06:52] LABS: HEMATOCRIT 38.7 % (42.0-52.0); HEMOGLOBIN 12.8 g/dl (13.5-18.0); MEAN CELL VOLUME 88 fl (80.0-100.0); MEAN CORPUSCULAR HEMOGLOBIN 29 pg (27-31); MEAN CORPUSCULAR HGB CONC 33 g/dl (33.0-37.0); MEAN PLATELET VOLUME 12.1 fl (7.4-10.4); PLATELET COUNT 363 K/mm3 (130-400); RED BLOOD COUNT 4.39 M/mm3 (4.20-5.60); REDCELL DISTRIBUTION WIDTH-CV 14.5 % (11.5-14.5)
[2021-07-15 07:35] LABS: ALBUMIN 2.4 gm/dL (3.4-4.8); C-REACTIVE PROTEIN 7.21 mg/dL (0.00-0.50); CALCIUM 8.5 mg/dL (8.4-10.2); CREATININE, serum 1.08 mg/dL (0.72-1.25); PHOSPHOROUS 2.8 mg/dL (2.3-4.7); POTASSIUM 3.6 mmol/L (3.5-4.5)
[2021-07-15 08:25] LABS: BAND 15 % (0-10); LYMPHOCYTE 10 % (20.0-51.0); METAMYELOCYTE 3 % (0-0); NEUTROPHILS 60 % (42.0-75.2); PLATELET ESTIMATE NORMAL (NORMAL)
[2021-07-15 09:00] VITALS: BP 116/59; PULSE 72; TEMP 98.3
--- NOTE | 2021-07-15 11:07 | NUR ---
Assessment completed, alert/oriented, vital signs stable, denies pain or discomfort, reporst he "feels pretty good", no resp.difficulty observed, he is still requiring 2-4L. o2, some crackles to RLL/ other lung duran CTA, heart RRR/distla pulses are palapble, indepednent in his room, denies needs, will continue to monitor
[2021-07-15 13:00] VITALS: BP 129/77; PULSE 82
[2021-07-15 16:35] VITALS: BP 104/69; PULSE 58; TEMP 97.8
[2021-07-15 19:59] VITALS: BP 127/80; PULSE 61; TEMP 97.7
[2021-07-16 00:43] VITALS: BP 156/83; PULSE 63; TEMP 97.4
[2021-07-16 04:00] VITALS: BP 130/80; PULSE 67; TEMP 98.1
--- NOTE | 2021-07-16 05:49 | NUR ---
02 WEANED DOWN TO 0.5L THIS NIGHT SATURATING 92-94 PERCENT.PT CONTINUES TO MILDLY DESAT ON AMBULATION. PT REMAINS MOTIVATED, COOPERATIVE AND COMPLIANT.
[2021-07-16 06:10] LABS: HEMATOCRIT 37.3 % (42.0-52.0); HEMOGLOBIN 12.4 g/dl (13.5-18.0); MEAN CELL VOLUME 87 fl (80.0-100.0); MEAN CORPUSCULAR HEMOGLOBIN 29 pg (27-31); MEAN CORPUSCULAR HGB CONC 33 g/dl (33.0-37.0); MEAN PLATELET VOLUME 11.6 fl (7.4-10.4); PLATELET COUNT 317 K/mm3 (130-400); REDCELL DISTRIBUTION WIDTH-CV 14.5 % (11.5-14.5)
[2021-07-16 06:24] LABS: ALBUMIN 2.4 gm/dL (3.4-4.8); CALCIUM 8.2 mg/dL (8.4-10.2); CREATININE, serum 0.84 mg/dL (0.72-1.25); MAGNESIUM 1.8 mg/dL (1.6-2.6); PHOSPHOROUS 3.2 mg/dL (2.3-4.7); POTASSIUM 3.7 mmol/L (3.5-4.5)
--- NOTE | 2021-07-16 07:55 | NUR ---
PATIENT WAS SITTING UP IN CHAIR, A & O X 4. PATIENT IS ON ROOM AIR. PATIENT DENIES ANY NEEDS AT THIS TIME, ASSESSMENT WITH NO REAL ABNORMAL FINDINGS FOR A COVID PATIENT. PATIENT IS LOOKING FORWARD TO GOING HOME TODAY.
[2021-07-16 08:03] LABS: BAND 11 % (0-10); LYMPHOCYTE 14 % (20.0-51.0); METAMYELOCYTE 4 % (0-0); NEUTROPHILS 62 % (42.0-75.2); PLATELET ESTIMATE NORMAL (NORMAL)
[2021-07-16 09:09] VITALS: BP 139/84; PULSE 65; TEMP 98
[2021-07-16] MEDS ORDERED: MONODOX100 PO (11:28)
[2021-07-16] MEDS ORDERED: DECADRON6 MG PO (11:32)
[2021-07-16 11:50] VITALS: BP 119/71; PULSE 80; TEMP 98.3
--- NOTE | 2021-07-16 15:58 | NUR ---
patient requires no oxygen at rest, there is desaturation with ambulation requiring 3L for SP02 to be >92%.
--- NOTE | 2021-07-16 16:01 | NUR ---
The clinical team is ready to discharge the patient. An exercise oximetry was ordered. RT notified SW that the patient qualified for 3 liters of oxygen with ambulation. SW contacted and faxed the patient's oxygen order to Ga at [facility]. Ga reports that it will not be until later that they deliver the patient's equipment to the hospital, due to their local intermodal truck driver being in [place] now. SW updated the patient's RN. SW contacted the patient and updated him on the above. The patient is in agreement to the plan. SW read the IM form outloud to the patient. The patient verbalized understanding and gave SW approval to sign the form on his behalf. No additional needs at this time.
[2021-07-16 16:09] VITALS: BP 152/83; PULSE 79; TEMP 98.7
--- NOTE | 2021-07-16 17:55 | NUR ---
PATIENT IV REMOVED. PATIENT DISCHARGE PAPERS REVIEWED AND DISCUSSED, NO QUESTIONS. PATIENT INFORMED OF APPOINTMENT SCHEDULED WITH PCP. DISCUSSED COVID 19 PRECAUTIONS AND OXYGEN INSTRUCTIONS WITH PATIENT. 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 WALKED PATIENT OUT TO CAR TO MEET HIS .
== END 2021-07-16 17:55 | disposition home or self-care (01) | DRG 177 ==
LOC: COL.ER 17:00 → MEDICAL 19:26
PROVIDERS: Internal Medicine; Student in an Organized Health Care Education/Training Program; ADMIT Student in an Organized Health Care Education/Training Program
PROC: XW033E5 Introduction of Remdesivir Anti-infective into Peripheral Vein, Percutaneous Approach, New Technology Group 5 (ICD-10-PCS; principal; 2021-07-12)
DX: U07.1 COVID-19 (principal); J12.82 Pneumonia due to coronavirus disease 2019; J96.01 Acute respiratory failure with hypoxia; I10 Essential (primary) hypertension; J44.9 Chronic obstructive pulmonary disease, unspecified; E03.9 Hypothyroidism, unspecified; D72.825 Bandemia; T38.0X5A Adverse effect of glucocorticoids and synthetic analogues, initial encounter; Z79.82 Long term (current) use of aspirin; Z87.891 Personal history of nicotine dependence
CPT/HCPCS: 99223-AI; 99232-AI; 99233-AI; 99239; J0248; J0696; J1100; J1650; J7050

== ENCOUNTER 2021-11-29 12:03 | Inpatient (IN) | payer MEDICARE, OTHER ==
[~2021-11-29] VITALS: Ht 182.9 cm; Wt 75.9 kg
[~2021-11-29 12:03] MED LIST changes: +DECADRON6 MG PO; +MONODOX100 PO; -SYNTHROID0.1 MG/TAB PO; +SYNTHROID0.112 MG/T PO
[2021-11-29 12:43] LABS: BASO # 0.1 K/mm3 (0.0-0.2); BASO % 0.4 % (0.0-2.0); EOS # 0.2 K/mm3 (0.0-0.7); EOS % 1.5 % (0.0-4.0); GRAN # 8.5 K/mm3 (1.4-6.5); GRAN % 72.7 % (42.2-75.2); HEMATOCRIT 38.6 % (42.0-52.0); HEMOGLOBIN 12.3 g/dl (13.5-18.0); LYMPH # 1.9 K/mm3 (1.2-3.4); LYMPH % 16.5 % (20.0-51.0); MEAN CELL VOLUME 87 fl (80.0-100.0); MEAN CORPUSCULAR HEMOGLOBIN 28 pg (27-31); MEAN CORPUSCULAR HGB CONC 32 g/dl (33.0-37.0); MEAN PLATELET VOLUME 11.6 fl (7.4-10.4); MONO % 8.6 % (1.7-9.3); PLATELET COUNT 382 K/mm3 (130-400); RED BLOOD COUNT 4.46 M/mm3 (4.20-5.60); REDCELL DISTRIBUTION WIDTH-CV 15.9 % (11.5-14.5)
[2021-11-29 12:50] LABS: INR 1.2 (0.8-3.0); PROTHROMBIN TIME 13.8 SECONDS (9.7-12.8)
[2021-11-29 12:53] LABS: PARTIAL THROMBOPLASTIN TIME 37.1 SECONDS (26.0-37.0)
[2021-11-29 13:03] LABS: ALBUMIN 3.5 gm/dL (3.4-4.8); BILIRUBIN,TOTAL 0.9 mg/dL (0.2-1.2); CALCIUM 9.2 mg/dL (8.4-10.2); CREATININE, serum 1.01 mg/dL (0.72-1.25); POTASSIUM 4.3 mmol/L (3.5-4.5); TOTAL PROTEIN 7.4 gm/dL (6.2-8.1)
[2021-11-29 13:09] LABS: TROPONIN-I 0.025 ng/mL (0.00-0.033)
[2021-11-29] MEDS ORDERED: ZESTRIL 10MG10 MG PO (14:29)
[2021-11-29] MEDS ORDERED: ZESTRIL 5MG5 MG PO ×2 (14:29)
[2021-11-29 16:35] LABS: MAGNESIUM 2.1 mg/dL (1.6-2.6); PHOSPHOROUS 3.4 mg/dL (2.3-4.7)
[2021-11-29 16:53] VITALS: BP 143/90; PULSE 89; TEMP 98.3
[2021-11-29 20:55] VITALS: BP 110/76; PULSE 92; TEMP 98.4
[2021-11-30 00:22] VITALS: BP 112/83; PULSE 87; TEMP 98.2
[2021-11-30 04:54] VITALS: BP 121/70; PULSE 85; TEMP 98
[2021-11-30 06:34] LABS: BASO % 0.5 % (0.0-2.0); EOS # 0.3 K/mm3 (0.0-0.7); EOS % 3.2 % (0.0-4.0); GRAN # 5.4 K/mm3 (1.4-6.5); GRAN % 65.4 % (42.2-75.2); HEMOGLOBIN 11.6 g/dl (13.5-18.0); LYMPH # 1.6 K/mm3 (1.2-3.4); LYMPH % 19.8 % (20.0-51.0); MEAN CELL VOLUME 87 fl (80.0-100.0); MEAN CORPUSCULAR HEMOGLOBIN 28 pg (27-31); MEAN CORPUSCULAR HGB CONC 32 g/dl (33.0-37.0); MEAN PLATELET VOLUME 12.1 fl (7.4-10.4); MONO # 0.9 K/mm3 (0.1-0.6); MONO % 10.7 % (1.7-9.3); PLATELET COUNT 324 K/mm3 (130-400); RED BLOOD COUNT 4.15 M/mm3 (4.20-5.60); REDCELL DISTRIBUTION WIDTH-CV 15.6 % (11.5-14.5)
[2021-11-30 06:55] LABS: CALCIUM 8.8 mg/dL (8.4-10.2); CREATININE, serum 1.06 mg/dL (0.72-1.25); MAGNESIUM 2.1 mg/dL (1.6-2.6); POTASSIUM 4.1 mmol/L (3.5-4.5)
[2021-11-30 06:57] VITALS: BP 134/75; PULSE 70; TEMP 98
[2021-11-30 07:11] LABS: TROPONIN-I 0.041 ng/mL (0.00-0.033)
--- NOTE | 2021-11-30 08:01 | NUR ---
PT SITTING UP ON EDGE OF BED EATING BREAKFAST. MORNING MEDICATIONS GIVEN. SHIFT ASSESSMENT COMPLETED. PT DENIES ANY PAIN OR NEEDS OVER NIGHT. STATES BREATHING FEELS IMPROVED, CURRENTLY ON 1.5L VIA NC. WILL CONTINUE TO MONITOR.
[2021-11-30 11:17] VITALS: BP 123/86; PULSE 86; TEMP 98.4
--- NOTE | 2021-11-30 11:29 | NUR ---
fish house worker met with patient to complete intake and discuss discharge plan. Patient states that he lives at home with his Saskia ([phone]) in [place]. Patient reports to being fully independent with his ADL's and does not utilize any DME to assist with mobility. Patient has no home oxygen needs at this time. He states that after he got Covid in June he was established with home oxygen through [facility] but after seeing his PCP at his follow up appointment she discontinued it and he states that he hasn't needed it since. PCP is Dr. Maldonado and he utilizes [facility] for perscription needs. Patient states that he does have a DPOA-HC established and that his is his agent. Patient verbalized that if he is needing oxygen at the time of discharge he would be interested in getting a portal concentrator in place of the tanks. Discharge plan: Home *may need oxygen*
--- NOTE | 2021-11-30 15:35 | NUR ---
REPORT PASSED ALONG TO NAKUL REESE.
[2021-11-30 16:14] VITALS: BP 106/75; PULSE 85; TEMP 98.3
--- NOTE | 2021-11-30 17:40 | NUR ---
TOOK OVER PT CARE FOR HUGH MOTA, PT HAS NO COMPLAINTS, LOVENOX GIVEN PER AUG INSTRUCTION, COFFEE BROUGHT PER PT REQUEST
[2021-11-30 20:54] VITALS: BP 109/76; PULSE 86; TEMP 98.7
[2021-12-01 00:36] VITALS: BP 112/73; PULSE 77; TEMP 98.5
[2021-12-01 04:14] VITALS: BP 128/77; PULSE 62; TEMP 97.6
[2021-12-01 06:47] LABS: BASO % 0.6 % (0.0-2.0); EOS # 0.3 K/mm3 (0.0-0.7); EOS % 3.8 % (0.0-4.0); GRAN # 4.2 K/mm3 (1.4-6.5); GRAN % 59.2 % (42.2-75.2); HEMOGLOBIN 11.6 g/dl (13.5-18.0); LYMPH # 1.9 K/mm3 (1.2-3.4); LYMPH % 26.5 % (20.0-51.0); MEAN CELL VOLUME 87 fl (80.0-100.0); MEAN CORPUSCULAR HEMOGLOBIN 28 pg (27-31); MEAN CORPUSCULAR HGB CONC 32 g/dl (33.0-37.0); MEAN PLATELET VOLUME 11.3 fl (7.4-10.4); MONO # 0.7 K/mm3 (0.1-0.6); MONO % 9.6 % (1.7-9.3); PLATELET COUNT 322 K/mm3 (130-400); RED BLOOD COUNT 4.14 M/mm3 (4.20-5.60); REDCELL DISTRIBUTION WIDTH-CV 15.4 % (11.5-14.5)
[2021-12-01 06:49] LABS: HEMATOCRIT 35.8 % (42.0-52.0)
[2021-12-01 07:15] LABS: CALCIUM 8.9 mg/dL (8.4-10.2); CREATININE, serum 1.12 mg/dL (0.72-1.25); POTASSIUM 4.1 mmol/L (3.5-4.5)
--- NOTE | 2021-12-01 07:30 | NUR ---
PT PLEASANT, AOX4, PT DENIES PAIN, ON RA AT THIS TIME, VITALS STABLE, ASSESSMENT PERFORMED, MEDICATIONS GIVEN, NO OTHER NEEDS
[2021-12-01 07:37] VITALS: BP 119/75; PULSE 77; TEMP 97.9
[2021-12-01 08:00] VITALS: BP 111/79; PULSE 75; TEMP 97.9
[2021-12-01] MEDS ORDERED: COZAAR 25MG25 MG/TAB PO (09:48)
[2021-12-01] MEDS ORDERED: JARDIANCE10 PO (09:48)
[2021-12-01] MEDS ORDERED: LASIX 40MG TABL40 MG PO (09:48)
[2021-12-01] MEDS ORDERED: OXYGEN NASAL.CANN (10:58)
--- NOTE | 2021-12-01 11:18 | NUR ---
Maggie: No mormon preference Situation: Manager Non Profit stopped by room on rounds Background: PT was on phone with family. Assessment: PT seemed content and appreciated the visit Recommendation: automatic operator will follow up as needed
[2021-12-01 11:37] VITALS: BP 101/75; PULSE 80; TEMP 98
--- NOTE | 2021-12-01 14:07 | NUR ---
iv removed, tele removed, pt getting dressed, home oxygen provided by oxygen company, pt has no questions at this time, pt taken down via wheelchair with pt belongings. no other needs
--- NOTE | 2021-12-01 14:40 | NUR ---
Wool Classer met with patient to discuss need for home oxygen as he will discharge home today. Patient states he has used [facility] in the past and would like to get established with them again. SW contacted Louise at [facility] and faxed referral with orders. A tank of oxygen will be delivered prior to discharge. SW discussed Home Health services with patient who declined need for HH at this time. SW contacted patient's , Saskia to review discharge plan. Saskia has no questions or concerns at this time. Discharge Plan: Home
[2021-12-02 13:21] LABS: ANGIOTENSIN CONVERTING ENZYME <5 U/L (16 - 85)
[2021-12-03 14:39] LABS: VITAMIN B1 171 nmol/L (70-180)
== END 2021-12-01 14:08 | disposition home or self-care (01) | DRG 291 ==
LOC: COL.ER 12:03 → MEDICAL 13:52
PROVIDERS: Family Medicine; Internal Medicine Interventional Cardiology; Nurse Practitioner; Physician Assistant; ADMIT Family Medicine
DX: I11.0 Hypertensive heart disease with heart failure (principal); I50.21 Acute systolic (congestive) heart failure; J96.01 Acute respiratory failure with hypoxia; I24.8 Other forms of acute ischemic heart disease; Z66 Do not resuscitate; E03.9 Hypothyroidism, unspecified; I49.3 Ventricular premature depolarization; I08.3 Combined rheumatic disorders of mitral, aortic and tricuspid valves; G47.33 Obstructive sleep apnea (adult) (pediatric); J44.9 Chronic obstructive pulmonary disease, unspecified; Z87.891 Personal history of nicotine dependence; Z86.16 Personal history of COVID-19; Z79.82 Long term (current) use of aspirin
CPT/HCPCS: 99223-AI; 99233-AI; 99239; A9270; J1650; J1940

== ENCOUNTER 2021-12-02 14:28 | Inpatient (IN) | payer MEDICARE, OTHER ==
[~2021-12-02] VITALS: Ht 182.9 cm; Wt 160.3 kg
[~2021-12-02 14:28] MED LIST changes: +COZAAR 25MG25 MG/TAB PO; +JARDIANCE10 PO; +LASIX 40MG TABL40 MG PO; +OXYGEN NASAL.CANN; +ZESTRIL 10MG10 MG PO
[2021-12-02 15:43] LABS: BASO % 0.3 % (0.0-2.0); EOS # 0.2 K/mm3 (0.0-0.7); EOS % 1.6 % (0.0-4.0); GRAN # 7.8 K/mm3 (1.4-6.5); GRAN % 83.4 % (42.2-75.2); HEMATOCRIT 38.9 % (42.0-52.0); HEMOGLOBIN 12.2 g/dl (13.5-18.0); LYMPH # 0.6 K/mm3 (1.2-3.4); LYMPH % 6.9 % (20.0-51.0); MEAN CELL VOLUME 88 fl (80.0-100.0); MEAN CORPUSCULAR HEMOGLOBIN 28 pg (27-31); MEAN CORPUSCULAR HGB CONC 31 g/dl (33.0-37.0); MEAN PLATELET VOLUME 11.5 fl (7.4-10.4); MONO # 0.7 K/mm3 (0.1-0.6); MONO % 7.4 % (1.7-9.3); PLATELET COUNT 347 K/mm3 (130-400); RED BLOOD COUNT 4.42 M/mm3 (4.20-5.60); REDCELL DISTRIBUTION WIDTH-CV 15.4 % (11.5-14.5)
[2021-12-02 15:57] LABS: ALBUMIN 3.5 gm/dL (3.4-4.8); BILIRUBIN,TOTAL 0.4 mg/dL (0.2-1.2); CALCIUM 9.4 mg/dL (8.4-10.2); CREATININE, serum 1.26 mg/dL (0.72-1.25); POTASSIUM 4.1 mmol/L (3.5-4.5); TOTAL PROTEIN 7.7 gm/dL (6.2-8.1)
[2021-12-02 16:03] LABS: TROPONIN-I 0.021 ng/mL (0.00-0.033)
--- NOTE | 2021-12-02 20:35 | NUR ---
PT. TO ROOM 325 FROM ER. INTAKE ASSESSMENT COMPLETE. PT. A&O. CHEST TUBE TO RIGHT UPPER CHEST IN PLACE. SET TO SUCTION WITH 250ML OF RED DRAINAGE. PT. ON 4L/MIN VIA OXYMASK. COMPLAINING OF PAIN IN THAT RIGHT UPPER CHEST WHERE CHEST TUBE IS. ORIENTED TO ROOM. CALL LIGHT IN REACH. NO FURHTER NEEDS AT THIS TIME.
[2021-12-02 20:40] VITALS: BP 139/85; PULSE 94; TEMP 98
[2021-12-02 20:43] VITALS: BP 139/85; PULSE 94; TEMP 98
[2021-12-03] VITALS (7 sets, daily range): BP systolic 86–144; BP diastolic 55–80; PULSE 74–105; TEMP 97.5–98.5
--- NOTE | 2021-12-03 06:05 | NUR ---
PT. SPENT UNEVENTFUL NIGHT SLEEPING. HE WOKE AROUND 0400 AND REQUESTED/GIVEN COFFEE. NO FURHTER NEEDS. CALL LIGHT IN REACH.
--- NOTE | 2021-12-03 07:30 | NUR ---
PATIENT IS ORIENTED X2 BUT DISPLAYS FREQUENT FORGETFULNESS. RE-ORIENTS EASILY. VSS ON TELE. O2 SATS IN THE MID TO UPPER 90'S ON 2L. AT BEDSIDE MAKING ROUNDS. CHEST TUBE TO WATER SEAL. PATIENT DENIES SOA. ONLY C/O MILD DISCOMFORT AT RIGHT CHEST TUBE SITE. NOTED DEMINISHED RIGHT LUNG FANG. HEAD TO TOE ASSESSMENT COMPLETE. DNR STATUS. AM MEDS GIVEN. NO C/O N/V. BREAKFAST TRAY AT BEDSIDE. 1,500 FR. RIGHT FORARM IV TO INT. NO OTHER NEEDS AT THIS TIME. CALL LIGHT IN REACH.
[2021-12-03 09:41] LABS: CALCIUM 9.6 mg/dL (8.4-10.2); CREATININE, serum 1.06 mg/dL (0.72-1.25); POTASSIUM 4.6 mmol/L (3.5-4.5)
--- NOTE | 2021-12-03 09:56 | NUR ---
YADI met with the patient to discuss discharge plan and re-admit. The patient recently discharged from the hospital on, 12/01, and returned home with his . He was set up with home oxygen, at 4 lites from [facility]. The patient re-admitted yesterday, 12/02. He states that when he got home, he only had one portable oxygen tank and [facility] did not deliver the concentrator and additional tanks until yesterday. He states he was using the concentrator, but it felt like he was not getting enough oxygen from it and his sats were still low. He told his that he needed to come back to the hospital. Upon arrival to the ED, it was found that the patient had a right-sided pneumothorax and a chest tube was placed. The patient lives in [place] with his , Saskia (ph#[phone]). He reports indepedence with ADLs and does not use any assistive devices. He has home oxygen and a CPAP from [facility]. The patient's PCP is Dr. Katty Maldonado and he receives his medications from [facility]. The patient does not have a DPOA-HC in EMR, but he states that he does have one completed and that he designated his . SW discussed home health services upon discharge. The patient declined and he states that he does not feel like he needs home health. SW discussed the option of seeing if he would qualify for cardiac rehab. The patient states that he has done outpatient therapy before and that went well, but after he was graduated from outpatient PT, they told him to just continue on with everyday activities. He states that this was going well for him. He states that a life vest was also discussed during his last hospital stay, but he was comfortable returning home, until the life vest could be fitted and put on. He would like to try and get the life vest while here this now. YADI asked the PA for PT/OT to be ordered. YADI contacted Katey at [facility] and informed her of the concerns with the oxygen. Katey plans to contact the patient's to address the concentrator and states that they will deliver more portable tanks to their home. *Discharge plan: home with . Will await therapy's recommendations*
--- NOTE | 2021-12-03 10:06 | NUR ---
Initial visit; Patient thanked Carmina for looking in on him and offering God's blessings.
--- NOTE | 2021-12-03 20:00 | NUR ---
PT UP IN CHAIR AT BEDSIDE. IS ALERT AND ORIENTED X4. HAS OXYGEN AT 2L/NC. DENIES SHORTNESS OF BREATH AT REST AND WITH ACTIVITY. HAS INT TO LFA, FLUSHES EASILY. RT CHEST TUBE TO WATERSEAL.
--- NOTE | 2021-12-03 20:50 | NUR ---
PT UP TO BATHROOM, HAS BM. BACK TO CHAIR AT BEDSIDE. DRSG CHANGED TO RT CHEST TUBE SITE D/T OLD DRSG LOOSE. SMALL BARREL CHEST TUBE INTACT. HAS GOOD TIDALING IN CHEST TUBE DRAINAGE CONTAINER. DENIES NEED FOR PAIN MEDS AT THIS TIME. IV MED GIVEN.
--- NOTE | 2021-12-04 03:05 | NUR ---
IV SOLUMEDROL GIVEN PER PATENT INT LFA. DENIES PAIN AT THIS TIME. CHEST TUBE REMAINS TO WATERSEAL. OXYGEN AT 2L/NC.
[2021-12-04 04:16] VITALS: BP 124/87; PULSE 93; TEMP 97.4
[2021-12-04 07:18] LABS: HEMATOCRIT 38.2 % (42.0-52.0); HEMOGLOBIN 11.5 g/dl (13.5-18.0); MEAN CELL VOLUME 91 fl (80.0-100.0); MEAN CORPUSCULAR HEMOGLOBIN 27 pg (27-31); MEAN CORPUSCULAR HGB CONC 30 g/dl (33.0-37.0); MEAN PLATELET VOLUME 11.4 fl (7.4-10.4); PLATELET COUNT 348 K/mm3 (130-400); REDCELL DISTRIBUTION WIDTH-CV 15.3 % (11.5-14.5)
[2021-12-04 07:42] VITALS: BP 117/79; PULSE 89; TEMP 97.6
[2021-12-04 07:57] LABS: CALCIUM 9.4 mg/dL (8.4-10.2); CREATININE, serum 1.1 mg/dL (0.72-1.25); POTASSIUM 4.9 mmol/L (3.5-4.5)
[2021-12-04 07:59] LABS: BAND 1 % (0-10); LYMPHOCYTE 7 % (20.0-51.0); NEUTROPHILS 91 % (42.0-75.2); PLATELET ESTIMATE NORMAL (NORMAL)
--- NOTE | 2021-12-04 08:00 | NUR ---
PATIENT IS A&O. VSS ON TELE. DENIES PAIN OR NEED FOR PAIN MEDS. CHEST TUBE TO WATER SEAL WITH SMALL AMOUNTS OF PINK DRAINAGE NOTED SINCE WIPING CLOTH CUTTER. PATIENT IS INDEPENENT IN ROOM AND TOLERATING ACTIVITY WELL. DENIES ANY SOA OR RESPIRATORY DISTRESS. 02 @ 2L PER NC WITH SATS IN MID TO UPPER 90'S. PATIENT WEARS 02 @ 2L AT HOME, SO HE IS AT HIS BASELINE. CXR ORDERED FOR THIS AM. HEAD TO TOE ASSESSMENT COMPLETE. DNR STATUS. BREAKFAST TRAY AT BEDSIDE. AM MEDS GIVEN. 1,500 FR. NO OTHER NEEDS AT THIS TIME. CALL LIGHT IN REACH.
--- NOTE | 2021-12-04 09:50 | NUR ---
RADIOLOGY AT BEDSIDE TO OBTAIN CXR
[2021-12-04 12:00] VITALS: BP 113/67; PULSE 89; TEMP 98.5
[2021-12-04 16:00] VITALS: BP 119/70; PULSE 94; TEMP 98
--- NOTE | 2021-12-04 19:30 | NUR ---
PT IN HALLWAY IN CHAIR D/T WEATHER WARNINGS. PT HAS OXYGEN AT 2L/NC. RT CHEST TUBE TO WATERSEAL, PINK DRAINAGE NOTED IN TUBING, TIDALING WITH RESPIRATIONS. INT TO LFA, FLUSHES WELL.
[2021-12-04 20:12] VITALS: BP 102/65; PULSE 96; TEMP 97.9
[2021-12-05 00:14] VITALS: BP 111/80; PULSE 80; TEMP 97.7
--- NOTE | 2021-12-05 00:48 | NUR ---
PT SITTING UP IN CHAIR AT BEDSIDE. IS ALERT AND ORIENTED X4. IV SOLUMEDROL GIVEN PER SCHEDULE. DENIES PAIN. CHANGED RT CHEST TUBE DRSG. DIFFICULTY GETTING TAPE TO ADHERE TO CHEST, DID SHAVE SOME HAIRS.
[2021-12-05 04:39] VITALS: BP 113/76; PULSE 83; TEMP 97.8
--- NOTE | 2021-12-05 06:00 | NUR ---
PT REPORTS SLEEPING IN BED "SOME". UP IN CHAIR AT THIS TIME. AM MED GIVEN. DENIES PAIN. OXYGEN @2L/NC. CHEST TUBE WITH 60CC DRAINAGE THIS SHIFT.
[2021-12-05 06:51] LABS: HEMOGLOBIN 11.5 g/dl (13.5-18.0); MEAN CELL VOLUME 89 fl (80.0-100.0); MEAN CORPUSCULAR HEMOGLOBIN 28 pg (27-31); MEAN CORPUSCULAR HGB CONC 31 g/dl (33.0-37.0); MEAN PLATELET VOLUME 11.4 fl (7.4-10.4); PLATELET COUNT 319 K/mm3 (130-400); RED BLOOD COUNT 4.16 M/mm3 (4.20-5.60); REDCELL DISTRIBUTION WIDTH-CV 15.3 % (11.5-14.5)
[2021-12-05 06:59] LABS: HEMATOCRIT 36.8 % (42.0-52.0)
[2021-12-05 07:16] LABS: CALCIUM 9.2 mg/dL (8.4-10.2); CREATININE, serum 1.01 mg/dL (0.72-1.25); POTASSIUM 4.7 mmol/L (3.5-4.5)
[2021-12-05 07:46] LABS: LYMPHOCYTE 6 % (20.0-51.0); NEUTROPHILS 92 % (42.0-75.2)
[2021-12-05 07:47] LABS: ANISOCYTOSIS 1+; PLATELET ESTIMATE NORMAL (NORMAL)
[2021-12-05 07:48] LABS: HYPOCHROMIA 1+
[2021-12-05 08:00] VITALS: BP 113/68; PULSE 72; TEMP 97.8
[2021-12-05 11:43] VITALS: BP 94/59; PULSE 78; TEMP 97.7
[2021-12-05 16:00] VITALS: BP 116/59; PULSE 49; TEMP 98.4
[2021-12-05 20:20] VITALS: BP 106/68; PULSE 92; TEMP 98.2
--- NOTE | 2021-12-05 20:30 | NUR ---
PT SITTING IN RECLINER AT BEDSIDE. HAS RT SMALL BORE CT TO WATERSEAL. HAS NOTED CREPITUS TO RT CHEST EXTENDING INTO RT NECK. DRSG INTACT TO CT. PT HAS OXYGEN AT 2L/NC. DENIES SOB. BLE EDEMA NOTED, REMAINS ON FR 1500CC. INT TO LFA. NO PAIN AT THIS TIME.
[2021-12-06 00:50] VITALS: BP 112/80; PULSE 89; TEMP 98.2
[2021-12-06 04:20] VITALS: BP 105/88; PULSE 93; TEMP 97.5
--- NOTE | 2021-12-06 06:05 | NUR ---
HAS ONLY 20CC OF OUTPUT FROM RT CHEST FOR THIS SHIFT. FELT A LITTLE MORE SHORT OF BREATH THIS AM. LABS DRAWN.
[2021-12-06 06:33] LABS: HEMOGLOBIN 11.2 g/dl (13.5-18.0); MEAN CELL VOLUME 88 fl (80.0-100.0); MEAN CORPUSCULAR HEMOGLOBIN 28 pg (27-31); MEAN CORPUSCULAR HGB CONC 32 g/dl (33.0-37.0); MEAN PLATELET VOLUME 11.5 fl (7.4-10.4); PLATELET COUNT 307 K/mm3 (130-400); RED BLOOD COUNT 4.04 M/mm3 (4.20-5.60); REDCELL DISTRIBUTION WIDTH-CV 15.5 % (11.5-14.5)
[2021-12-06 06:41] LABS: CREATININE, serum 1.17 mg/dL (0.72-1.25); POTASSIUM 4.6 mmol/L (3.5-4.5)
[2021-12-06 06:54] LABS: HEMATOCRIT 35.6 % (42.0-52.0)
--- NOTE | 2021-12-06 07:30 | NUR ---
MAKING ROUNDS AND HE CLAMPED PATIENTS RIGHT CHEST TUBE THAT WAS TO WATER SEAL. PATIENT TOLERATING WELL SO FAR, NO C/O SOA. CURRENTLY 02 @ 2L PER NC WITH SATS IN MID 90'S. 02 @ 2L IS HIS BASELINE AT HOME. NOTED CREPITUS TO RIGHT CHEST THAT EXTENDS UP INTO RIGHT CLAVICAL & NECK. SURGEON AWARE AND AT BEDSIDE. WILL MONITOR.
[2021-12-06 07:53] VITALS: BP 133/75; PULSE 110; TEMP 98
--- NOTE | 2021-12-06 08:30 | NUR ---
DURING ROUTINE VITALS NOTED 02 SATS DECREASED INTO UPPER 80'S ON 2L. O2 INCREASED TO 3L AT 90%. PATIENT DENIES SOA BUT DOES APPEAR TO NURSING TO BE BREATHING DEEPER AT REST. NOTIFIED SURGEON.
[2021-12-06 08:38] LABS: BAND 1 % (0-10); LYMPHOCYTE 5 % (20.0-51.0); NEUTROPHILS 91 % (42.0-75.2)
[2021-12-06 08:43] LABS: HYPOCHROMIA 1+; MICROCYTOSIS 1+; PLATELET ESTIMATE NORMAL (NORMAL)
--- NOTE | 2021-12-06 09:58 | NUR ---
RADIOLOGY AT BEDSIDE TO OBTAIN CXR.
--- NOTE | 2021-12-06 10:10 | NUR ---
REVIEWED CXR. PATIENT CHEST TUBE NOW BACK TO 20 OF SUCTION. 02 @ 3L WITH SATS IN THE LOW 90'S. HR 90 TO LOW 100'S ON TELE. PATIENT STILL DENIES SOA OR RESPIRATORY DISTRESS. WILL CONTINUE TO MONITOR.
--- NOTE | 2021-12-06 10:30 | NUR ---
RADIOLOGY BACK AT BEDSIDE TO OBTAIN ANOTHER CXR.
--- NOTE | 2021-12-06 10:56 | NUR ---
NOTIFIED PROVIDER OF REPEAT CXR RESULTS. AWAITING ANY ORDERS.
--- NOTE | 2021-12-06 11:22 | NUR ---
SW met with the patient to follow up and review discharge plan. The patient was playing Solitaire. The patient states that he is doing well. SW discussed home health services and if he would be interested in services, if he does go home with a chest tube. The patient states that he will talk to his . He states that he may be going into surgery to have a valve placed. He had no concerns for SW at this time. *Discharge plan: home with *
[2021-12-06 12:00] VITALS: BP 127/75; PULSE 88; TEMP 98
[2021-12-06 15:52] VITALS: BP 119/75; PULSE 86; TEMP 98
[2021-12-06 19:59] VITALS: BP 109/66; PULSE 96; TEMP 97.9
--- NOTE | 2021-12-06 22:50 | NUR ---
PATIENT ALERT AND ORIENTED. SITTING IN CHAIR PLAYING CARDS. DENIES PAIN. DENIES NEEDS. NO HS MEDS DUE AT THIS TIME. CHEST TUBE TO 20 OF SUCTION. CHEST TUBE SITE CDI WITH OCCLUSIVE DRESSING. REMAINS ON 2 L O2 VIA NC.
[2021-12-07 00:39] VITALS: BP 119/80; PULSE 89; TEMP 98.8
[2021-12-07 04:18] VITALS: BP 115/78; PULSE 79; TEMP 97.9
[2021-12-07 07:18] VITALS: BP 124/84; PULSE 82; TEMP 97.8
[2021-12-07 07:21] LABS: CALCIUM 8.9 mg/dL (8.4-10.2); CREATININE, serum 1.22 mg/dL (0.72-1.25); POTASSIUM 4.3 mmol/L (3.5-4.5)
[2021-12-07 07:38] LABS: BASO % 0.2 % (0.0-2.0); GRAN # 8.2 K/mm3 (1.4-6.5); GRAN % 88.7 % (42.2-75.2); HEMATOCRIT 37.8 % (42.0-52.0); HEMOGLOBIN 12.2 g/dl (13.5-18.0); LYMPH # 0.6 K/mm3 (1.2-3.4); LYMPH % 6.3 % (20.0-51.0); MEAN CELL VOLUME 86 fl (80.0-100.0); MEAN CORPUSCULAR HEMOGLOBIN 28 pg (27-31); MEAN CORPUSCULAR HGB CONC 32 g/dl (33.0-37.0); MEAN PLATELET VOLUME 12.5 fl (7.4-10.4); MONO # 0.4 K/mm3 (0.1-0.6); MONO % 4.2 % (1.7-9.3); PLATELET COUNT 328 K/mm3 (130-400); RED BLOOD COUNT 4.38 M/mm3 (4.20-5.60); REDCELL DISTRIBUTION WIDTH-CV 15.3 % (11.5-14.5)
--- NOTE | 2021-12-07 09:21 | NUR ---
SPOKE WITH DR REESE WHO WANTS PATIENT TO BE NPO FOR THE TIME BEING. RIGHT SIDED PNEUMOTHORAX STILL PRESENT ON CHEST XRAY THIS MORNING. CHANGED TO NPO IN CASE PROCEDURE IS NEEDED.
--- NOTE | 2021-12-07 11:33 | NUR ---
Maggie: No anglican preference Situation: Glaciologist stopped by room on rounds Background: PT is retired from [employer] Assessment: Pt is content and appreciated the visit Recommendation: Glaciologist will follow up as needed
[2021-12-07 12:00] VITALS: BP 149/92; PULSE 97; TEMP 97.5
--- NOTE | 2021-12-07 13:19 | NUR ---
CALL PLACED TO DR REESE THAT CHEST TUBE IS NOT FUNCTIONING PROPERLY. SUCTION HAS BEEN CHECKED SEVERAL TIMES, THE ONLY WAY TO GET CONT BUBBLING IN THE CHAMBER IS TO PLACE A HAND OVER THE SITE AND APPLY PRESSURE.
--- NOTE | 2021-12-07 15:00 | NUR ---
DR REESE IN WITH PATIENT TO CHECK CHEST TUBE. STATES THERE IS A MINOR ISSUE WITH THE TUBE ITSELF BUT IS STILL DRAINING OK TO KEEP AND MONITOR.
[2021-12-07 16:00] VITALS: BP 110/64; PULSE 95; TEMP 97.8
[2021-12-07 20:02] VITALS: BP 112/62; PULSE 91; TEMP 97.9
[2021-12-08] VITALS (7 sets, daily range): BP systolic 96–111; BP diastolic 65–81; PULSE 71–94; TEMP 97.5–98.7
--- NOTE | 2021-12-08 01:40 | NUR ---
PATIENT ALERT AND ORIENTED. SITTING IN CHAIR PLAYING CARDS. REQUESTS COFFEE. DENIES PAIN. CHEST TUBE TO 20 OF SUCTION. REMAINS ON 2L O2 VIA NC. HS MEDS PER EMAR.
[2021-12-08 06:29] LABS: BASO % 0.1 % (0.0-2.0); EOS % 0.1 % (0.0-4.0); GRAN % 82.4 % (42.2-75.2); HEMATOCRIT 39.6 % (42.0-52.0); HEMOGLOBIN 12.6 g/dl (13.5-18.0); LYMPH # 0.9 K/mm3 (1.2-3.4); MEAN CELL VOLUME 87 fl (80.0-100.0); MEAN CORPUSCULAR HEMOGLOBIN 28 pg (27-31); MEAN CORPUSCULAR HGB CONC 32 g/dl (33.0-37.0); MEAN PLATELET VOLUME 11.9 fl (7.4-10.4); MONO # 0.8 K/mm3 (0.1-0.6); MONO % 7.8 % (1.7-9.3); PLATELET COUNT 323 K/mm3 (130-400); RED BLOOD COUNT 4.55 M/mm3 (4.20-5.60); REDCELL DISTRIBUTION WIDTH-CV 15.5 % (11.5-14.5)
[2021-12-08 06:39] LABS: ALBUMIN 3.2 gm/dL (3.4-4.8); CALCIUM 8.9 mg/dL (8.4-10.2); CREATININE, serum 1.15 mg/dL (0.72-1.25); MAGNESIUM 2.5 mg/dL (1.6-2.6); PHOSPHOROUS 3.6 mg/dL (2.3-4.7); POTASSIUM 4.3 mmol/L (3.5-4.5)
--- NOTE | 2021-12-08 08:00 | NUR ---
PATIENT IS A&O. VSS ON TELE. 02 @ 1.5L PER NC WITH SATS IN UPPER 90'S. PATIENT WEARS 02 @ 2L AT BASELINE AT HOME. CHEST TUBE TO 20 SUCTION. RIGHT CHEST BULKY TAPE DRESSING KEEPS TRYING TO COME OFF. AT BEDSIDE, CALLED OR FOR WIDE ROLL OF MEDIPORE. CHEST TUBE DRESSING CHANGED AND PATIENT TOLERATED WELL. HEAD TO TOE ASSESSMENT COMPLETE. DNR STATUS. AM MEDS GIVEN. BREAKFAST TRAY AT BEDSIDE. INDEPENDENT IN ROOM. CALL LIGHT IN REACH. NO OTHER NEEDS.
--- NOTE | 2021-12-08 22:06 | NUR ---
PATIENT ALERT AND ORIENTED. DENIES PAIN. R CHEST TO TO 20 OF SUCTION. OCCLUSIVE DRESSING IN PLACE IS CDI. REQUESTS COFFEE. VOIDING IN URINAL WITHOUT ISSUE. DENIES SOB, CHEST PAIN. REMAINS INDEPENDENT IN ROOM WITHOUT ISSUES.
[2021-12-09 03:10] VITALS: BP 117/71; PULSE 72; TEMP 97.5
[2021-12-09 06:41] LABS: EOS % 0.1 % (0.0-4.0); GRAN # 7.5 K/mm3 (1.4-6.5); GRAN % 80.6 % (42.2-75.2); HEMATOCRIT 39.2 % (42.0-52.0); HEMOGLOBIN 12.4 g/dl (13.5-18.0); LYMPH # 1.2 K/mm3 (1.2-3.4); MEAN CELL VOLUME 87 fl (80.0-100.0); MEAN CORPUSCULAR HEMOGLOBIN 28 pg (27-31); MEAN CORPUSCULAR HGB CONC 32 g/dl (33.0-37.0); MEAN PLATELET VOLUME 11.9 fl (7.4-10.4); MONO # 0.5 K/mm3 (0.1-0.6); MONO % 5.8 % (1.7-9.3); PLATELET COUNT 306 K/mm3 (130-400); RED BLOOD COUNT 4.51 M/mm3 (4.20-5.60); REDCELL DISTRIBUTION WIDTH-CV 15.4 % (11.5-14.5)
[2021-12-09 06:54] LABS: CALCIUM 8.7 mg/dL (8.4-10.2); CREATININE, serum 1.07 mg/dL (0.72-1.25); MAGNESIUM 2.6 mg/dL (1.6-2.6); PHOSPHOROUS 3.8 mg/dL (2.3-4.7); POTASSIUM 4.9 mmol/L (3.5-4.5)
[2021-12-09 07:25] VITALS: BP 110/71; PULSE 76; TEMP 97.9
--- NOTE | 2021-12-09 08:51 | NUR ---
PT SITTING UP IN CHAIR, HAS FINISHED EATING BREAKFAST. CHEST TUBE TO SUCTION, WATER CHAMBER BUBBLING, DRAINAGE IS RED. PT DENIES SOB, RESPIRATIONS UNLABORED ON ROOM AIR. PT STATES THAT HE IS HAVING SOME MILD CHEST PAIN SORENESS ON THE RIGHT SIDE WHERE CHEST TUBE IS INSERTED, RATES 2/10. DRESSING TO CHEST TUBE SITE CDI. PT DENIES NEEDS. CALL LIGHT WITHIN REACH.
--- NOTE | 2021-12-09 10:44 | NUR ---
XRAY IN PT ROOM.
[2021-12-09 11:13] VITALS: BP 127/46; BP 97/57; PULSE 65; PULSE 68; TEMP 97.6; TEMP 97.7
[2021-12-09 15:30] VITALS: BP 101/63; PULSE 89; TEMP 98.1
--- NOTE | 2021-12-09 17:12 | NUR ---
PT SITS UP IN CHAIR MOST OF DAY, CHEST TUBE REMAINS ON SUCTION. PT DENIES SOB, RESPIRATIONS UNLABORED ON ROOM AIR ALL DAY. PT HAS BEEN UP INDEPENDENTLY IN ROOM, TOLERATES WELL, USES URINAL. PT DENIES NEEDS. CALL LIGHT WITHIN REACH.
[2021-12-09 20:06] VITALS: BP 97/66; PULSE 79; TEMP 97.6
--- NOTE | 2021-12-09 20:39 | NUR ---
PATIENT SITTING UP PLAYING CARDS ON ROOM ENTRY. DENIES PAIN. CHEST TUBE TO 20 OF SUCTION. OCCLUSIVE DRESSING IS CDI. INT L FA FLUSHED AND PATENT. REMAINS ON ROOM AIR.
[2021-12-09 23:37] VITALS: BP 116/88; PULSE 70; TEMP 97.7
--- NOTE | 2021-12-10 01:19 | NUR ---
TX GIVEN VIA MASK, TOLERATED WELL.
[2021-12-10 03:55] VITALS: BP 126/79; PULSE 75; TEMP 97.5
[2021-12-10 06:46] LABS: BASO % 0.1 % (0.0-2.0); EOS # 0.3 K/mm3 (0.0-0.7); EOS % 2.8 % (0.0-4.0); GRAN # 7.7 K/mm3 (1.4-6.5); GRAN % 65.2 % (42.2-75.2); HEMATOCRIT 40.7 % (42.0-52.0); HEMOGLOBIN 13.2 g/dl (13.5-18.0); LYMPH # 2.6 K/mm3 (1.2-3.4); LYMPH % 22.1 % (20.0-51.0); MEAN CELL VOLUME 85 fl (80.0-100.0); MEAN CORPUSCULAR HEMOGLOBIN 28 pg (27-31); MEAN CORPUSCULAR HGB CONC 32 g/dl (33.0-37.0); MEAN PLATELET VOLUME 11.5 fl (7.4-10.4); MONO % 8.4 % (1.7-9.3); PLATELET COUNT 331 K/mm3 (130-400); REDCELL DISTRIBUTION WIDTH-CV 15.5 % (11.5-14.5)
[2021-12-10 07:06] LABS: ALBUMIN 3.1 gm/dL (3.4-4.8); CALCIUM 8.5 mg/dL (8.4-10.2); CREATININE, serum 1.18 mg/dL (0.72-1.25); MAGNESIUM 2.5 mg/dL (1.6-2.6); PHOSPHOROUS 2.9 mg/dL (2.3-4.7); POTASSIUM 4.1 mmol/L (3.5-4.5)
[2021-12-10 07:49] VITALS: BP 102/79; PULSE 73; TEMP 97.5
[2021-12-10] MEDS ORDERED: COREG 3.123.125 MG/T PO ×2 (07:56)
--- NOTE | 2021-12-10 09:55 | NUR ---
YADI met with the patient to follow up before the weekend. The patient is hopeful to be able to go home soon, but has not heard from the clinical team yet. SW followed up about home health. He states that he talked to his and the surgeon, but the surgeon said that he may not have a need for home health. The patient would like to know more about what is going on, before making a decision. YADI presented and read the IM form outloud to the patient. The patient verbalized understanding and signed the form. YADI provided him with a copy. *Discharge plan: home with *
--- NOTE | 2021-12-10 10:43 | NUR ---
AT BEDSIDE AND PLACED CHEST TUBE TO [facility]. PLAN IS TO REPEAT A CXR TODAY AROUND 2PM FOR POSSIBLE DC HOME LATER TONIGHT WITH [facility].
[2021-12-10 11:35] VITALS: BP 104/77; PULSE 84; TEMP 97.3
--- NOTE | 2021-12-10 11:52 | NUR ---
SW attempted to contact the patient's , Saskia, to review discharge plan. SW left her a voicemail.
--- NOTE | 2021-12-10 14:36 | NUR ---
The clinical team is ready to discharge the patient today. The patient's , Saskia, arrived to the hospital. SW met with the patient and Saskia to review discharge plan and discussed home health services to assist with the chest tube. The patient and Saskia report that they do not feel like home health is needed at this time and feel comfortable taking care of the chest tube. They had no concerns for SW. Saskia reports that [facility] did deliver more equipment and portable oxygen tanks out to their home. No additional needs at this time.
--- NOTE | 2021-12-10 15:20 | NUR ---
CXR OBTAINED, NOTIFIED HOSPITALIST TO VIEW. SEE DC ORDERS TO HOME. GAVE DISCHARGE INSTRUCTIONS, DRESSING SUPPLIES FOR [facility], E-SCRIPT SENT, AND DISCUSSED F/U APTS AND CXR. ANSWERED QUESTIONS/CONCERNS. DC'D TELE. DC'D IV SITE AND COVERED WITH [employer]. AT BEDSIDE FOR DISCHARGE INSTRUCTIONS. PATIENT DID REQUEST THAT SCRIPT BE SENT TO [facility] DUE TO HIS SCRIPT GOING TO [employer] AND THEY WILL NOT LIKELY HAVE IT READY TODAY BEFORE THEY CLOSE. NOTIFIED HOSPITALIST OF PHARMACY CHANGE.
[2021-12-10 15:42] VITALS: BP 149/72; PULSE 64; TEMP 97.8
--- NOTE | 2021-12-10 15:50 | NUR ---
HOSPITALIST & SURGEON BOTH REVIEWED CXR AND CONFIRM WE MAY PROCEED WITH DISCHARGE. PATIENT'S SCRIPT SENT TO [facility] PER THEIR REQUEST. PATIENT ESCORTED OUT VIA WC TO PERSONAL VEHICLE WITH AND WITH HIS BELONGINGS.
== END 2021-12-10 15:50 | disposition home or self-care (01) | DRG 186 ==
LOC: COL.ER 14:28 → SURG 19:47
PROVIDERS: Internal Medicine; Personal Emergency Response Attendant; Physician Assistant; ADMIT Student in an Organized Health Care Education/Training Program
PROC: 0W9930Z Drainage of Right Pleural Cavity with Drainage Device, Percutaneous Approach (ICD-10-PCS; principal; 2021-12-02)
DX: J94.8 Other specified pleural conditions (principal); J96.21 Acute and chronic respiratory failure with hypoxia; G61.0 Guillain-Barre syndrome; J44.1 Chronic obstructive pulmonary disease with (acute) exacerbation; T79.7XXA Traumatic subcutaneous emphysema, initial encounter; I50.22 Chronic systolic (congestive) heart failure; J93.82 Other air leak; Z66 Do not resuscitate; I27.20 Pulmonary hypertension, unspecified; I11.0 Hypertensive heart disease with heart failure; E03.9 Hypothyroidism, unspecified; Z87.01 Personal history of pneumonia (recurrent); Z98.52 Vasectomy status; Z90.89 Acquired absence of other organs; Z87.891 Personal history of nicotine dependence; Z99.81 Dependence on supplemental oxygen; Z79.890 Hormone replacement therapy; Z79.82 Long term (current) use of aspirin
CPT/HCPCS: 99223-AI; 99231-AI; 99232-AI; 99233-AI; 99239; A9270; J1956; J2060; J2920; J2930; J7512; Q9967

== ENCOUNTER → 2021-12-15 | Outpatient (CLI) | payer MEDICARE, OTHER ==
[~2021-12-15] MED LIST changes: +COREG 3.123.125 MG/T PO
== END ==
LOC: COL.RAD 09:49
DX: J43.9 Emphysema, unspecified (principal); J93.9 Pneumothorax, unspecified

== ENCOUNTER → 2023-08-21 | Outpatient (CLI) | payer MEDICARE, OTHER ==
[~2023-08-21] MED LIST changes: +AMOXICILLIN 8751 TAB PO; +CRESTOR40 MG; +ENTRESTO 97 MG1 EACH PO; +Iohexol 350 - 100 ML VIAL IV ONE; +NS 100 ML IV SCH; +PLAVIX 75MG TAB75 MG PO; +PREDNISONE20 MG PO; +VERQUVO5 MG PO
== END ==
LOC: COL.RAD 08:55
DX: I72.4 Aneurysm of artery of lower extremity (principal); I72.3 Aneurysm of iliac artery; I70.92 Chronic total occlusion of artery of the extremities; Z98.890 Other specified postprocedural states
CPT/HCPCS: Q9967